=== PATIENT | female | born 1960 | race Caucasian/White ===

== ENCOUNTER 2024-06-12 23:38 | Emergency (ER) | payer OTHER ==
[~2024-06-12] VITALS: Ht 177.8 cm; Wt 104.8 kg
[2024-06-13] MEDS ORDERED: CEPH500C2 PO (00:19)
[2024-06-13] MEDS ORDERED: CITA10TA9 PO (00:19)
[2024-06-13] MEDS ORDERED: ESCI-9 PO (00:19)
[2024-06-13] MEDS ORDERED: CEphaleXIN 500 MG CAPSULE ONE (00:21)
[2024-06-13] MEDS ORDERED: ESCITALOPRAM OXALATE 10 MG TABLET ONE (00:21)
[2024-06-13] MEDS: ESCITALOPRAM OXALATE 10 MG TABLET PO ONE (00:25)
[2024-06-13] MEDS: CEphaleXIN 500 MG CAPSULE PO ONE (00:25)
[2024-06-13 00:26] VITALS: BP 151/83; O2SAT 96
== END 2024-06-13 00:26 | disposition home or self-care (01) ==
LOC: ER 23:46
DX: L03.311 Cellulitis of abdominal wall (principal); F17.200 Nicotine dependence, unspecified, uncomplicated; F41.9 Anxiety disorder, unspecified; Z79.899 Other long term (current) drug therapy; Z90.710 Acquired absence of both cervix and uterus; Z88.2 Allergy status to sulfonamides
CPT/HCPCS: A4606; A4663